=== PATIENT | female | born 1980 | race Caucasian/White ===

== ENCOUNTER → 2017-10-02 | Outpatient (CLI) | payer OTHER ==
--- NOTE | 2017-10-02 11:24 | RAD ---
Radionuclide gastric imaging study, 10/02/2017: History: Gastroparesis This study was performed utilizing a solid test meal radiolabeled with 2.0 mCi of technetium 99m sulfur colloid. Imaging of the abdomen obtained out to one hour showed little if any gastric emptying. The time activity curve is flat. An accurate T1/2 cannot be calculated in this situation. IMPRESSION: Markedly delayed gastric emptying
== END | disposition home or self-care (01) ==
LOC: NM 08:26
PROVIDERS: ATTEND Internal Medicine Gastroenterology
DX: K31.84 Gastroparesis (principal); I10 Essential (primary) hypertension; Z87.891 Personal history of nicotine dependence
CPT/HCPCS: 78264; A9541

== ENCOUNTER 2017-12-14 14:40 | Emergency (ER) | payer OTHER ==
[~2017-12-14] VITALS: Ht 162.6 cm; Wt 113.4 kg
[2017-12-14] MEDS ORDERED: IV NORMAL SALINE 1,000ML 1,000 ML IV SCH (15:17)
[2017-12-14] MEDS ORDERED: 0.9 % SODIUM CHLORIDE 10 ML DISP.SYRIN. IV PRN (15:30)
--- NOTE | 2017-12-14 15:35 | RAD ---
PQRS Compliance Statement: One or more of the following individualized dose reduction techniques were utilized for this examination: 1. Automated exposure control 2. Adjustment of the mA and/or kV according to patient size 3. Use of iterative reconstruction technique CT HEAD WITHOUT CONTRAST History: SYNCOPE TODAY Comparison: None. Procedure: Axial images are obtained of the head from the skull base through the vertex without IV contrast. Findings: The ventricles and sulci are normal for the patient's age. No mass-effect, midline shift, hemorrhage, extra-axial fluid collection, or obvious acute infarction is identified. Basilar cisterns are patent. Bone windows demonstrate no acute calvarial abnormality. The visualized paranasal sinuses are clear. Mastoid air cells are well aerated. IMPRESSION: No acute intracranial abnormality. Electronically signed by: Evangelista Gates MD (12/14/2017 3:32 PM) [id number]
[2017-12-14] MEDS ORDERED: ONDANSETRON PF 4 MG/2 ML VIAL. IV ONE (15:45)
--- NOTE | 2017-12-14 15:46 | EKG ---
[address] [address] Test Date: 2017-12-14 Test Time: 15:31:18 Pat Name: NESHA CALLE Department: Room: Gender: F [employer] Feeder: MARIAMA : 1980 Requested By: ESTELLE HENRY Order Number: [id number] Reading MD: Rolando Mcclelland MD Measurements Intervals [place] Rate: 76 P: 0 MD: 178 QRS: 54 QRSD: 88 T: 36 QT: 382 QTc: 434 Interpretive Statements SINUS RHYTHM Electronically Signed On 12-17-2017 16:19:41 CDT by Rolando Mcclelland MD
[2017-12-14 16:09] LABS: BASO % 1 % (0-3); EOS # 0.4 x10^3/uL (0.0-0.7); EOS % 5 % (0-3); HEMATOCRIT 40.7 % (36.0-47.0); HEMOGLOBIN 13.9 g/dL (12.0-15.5); LYMPH # 2.2 x10^3/uL (1.0-4.8); LYMPH % 32 % (24-48); MEAN CORPUSCULAR HEMOGLOBIN 30 pg (25-35); MEAN CORPUSCULAR HGB CONC 34 g/dL (31-37); MEAN CORPUSCULAR VOLUME 89 fL (79-100); MONO # 0.7 x10^3/uL (0.0-1.1); MONO % 9 % (0-9); NEUT # 3.7 x10^3uL (1.8-7.7); NEUT % 53 % (31-73); PLATELET COUNT 277 x10^3/uL (140-400); RED BLOOD COUNT 4.58 x10^6/uL (3.50-5.40); RED CELL DISTRIBUTION WIDTH 12.4 % (11.5-14.5)
[2017-12-14 16:11] LABS: ALBUMIN 3.6 g/dL (3.4-5.0); ALBUMIN/GLOBULIN RATIO 1.1 (1.0-1.7); CALCIUM 9.1 mg/dL (8.5-10.1); CREATININE 0.8 mg/dL (0.6-1.0); GFR 81.6; TOTAL BILIRUBIN 0.3 mg/dL (0.2-1.0); TOTAL PROTEIN 6.9 g/dL (6.4-8.2)
--- NOTE | 2017-12-14 17:02 | PHYS DOC ---
Past History Past Medical History: Diabetes, Other Additional Past Medical Histor: diabetic gastroparesis Adult General Chief Complaint Chief Complaint: SYNCOPE HPI HPI 37-year-old male patient with history of diabetes mellitus and gastroparesis complaining of frequent episodes of nausea and vomiting for the last 2 months and losing 45 pounds because of not eating well. Patient states she was at work today and felt lightheadedness and dizziness without chest pain or shortness of breath or focal neuro deficit and had a syncopal episode that was weakness by her coworker. Patient did not have a fall or seizure activity. Syncopal episodes last for a short time. Patient states her blood sugar was 80 at that is lower than her usual of 120s. Patient denies history of syncopal episode Review of Systems Review of Systems Constitutional: Denies fever or chills [] Eyes: Denies change in visual acuity, redness, or eye pain [] HENT: Denies nasal congestion or sore throat [] Respiratory: Denies cough or shortness of breath [] Cardiovascular: No additional information not addressed in HPI [] GI: Denies abdominal pain, nausea, vomiting, bloody stools or diarrhea [] : Denies dysuria or hematuria [] Musculoskeletal: Denies back pain or joint pain [] Integument: Denies rash or skin lesions [] Neurologic: Denies headache, focal weakness or sensory changes [] Endocrine: Denies polyuria or polydipsia [] All other systems were reviewed and found to be within normal limits, except as documented in this note. Current Medications Current Medications Current Medications Medications (Trade) Dose Ordered Sig/Dylon Start Time Stop Time Status Last Admin Dose Admin Ondansetron HCl (Zofran) 4 mg 1X ONCE 12/14/17 15:45 12/14/17 15:46 DC 12/14/17 15:45 4 MG Sodium Chloride (Normal Saline Flush) 10 ml QSHIFT PRN 12/14/17 15:30 Allergies Allergies Allergies Coded Allergies Type Severity Reaction Last Updated Verified clindamycin Allergy Intermediate rash 12/14/17 Yes Physical Exam Physical Exam Constitutional: Well developed, well nourished, mild distress, non-toxic appearance. [] HENT: Normocephalic, atraumatic, bilateral external ears normal, oropharynx moist, no oral exudates, nose normal. [] Eyes: PERRLA, EOMI, conjunctiva normal, no discharge. [] Neck: Normal range of motion, no tenderness, supple, no stridor. [] Cardiovascular:Heart rate regular rhythm, no murmur [] Lungs & Thorax: Bilateral breath sounds clear to auscultation [] Abdomen: Bowel sounds normal, soft, no tenderness, no masses, no pulsatile masses. [] Skin: Warm, dry, no erythema, no rash. [] Back: No tenderness, no CVA tenderness. [] Extremities: No tenderness, no cyanosis, no clubbing, ROM intact, no edema. [] Neurologic: Alert and oriented X 3, normal motor function, normal sensory function, no focal deficits noted. [] Psychologic: Affect normal, judgement normal, mood normal. [] Current Patient Data Lab Results Laboratory Tests Test 12/14/17 14:56 12/14/17 15:20 12/14/17 16:29 Glucose (Fingerstick) 84 mg/dL (70-99) 76 mg/dL (70-99) White Blood Count 7.0 x10^3/uL (4.0-11.0) Red Blood Count 4.58 x10^6/uL (3.50-5.40) Hemoglobin 13.9 g/dL (12.0-15.5) Hematocrit 40.7 % (36.0-47.0) Mean Corpuscular Volume 89 fL (79-100) Mean Corpuscular Hemoglobin 30 pg (25-35) Mean Corpuscular Hemoglobin Concent 34 g/dL (31-37) Red Cell Distribution Width 12.4 % (11.5-14.5) Platelet Count 277 x10^3/uL (140-400) Neutrophils (%) (Auto) 53 % (31-73) Lymphocytes (%) (Auto) 32 % (24-48) Monocytes (%) (Auto) 9 % (0-9) Eosinophils (%) (Auto) 5 % (0-3) H Basophils (%) (Auto) 1 % (0-3) Neutrophils # (Auto) 3.7 x10^3uL (1.8-7.7) Lymphocytes # (Auto) 2.2 x10^3/uL (1.0-4.8) Monocytes # (Auto) 0.7 x10^3/uL (0.0-1.1) Eosinophils # (Auto) 0.4 x10^3/uL (0.0-0.7) Basophils # (Auto) 0.0 x10^3/uL (0.0-0.2) Sodium Level 140 mmol/L (136-145) Potassium Level 4.0 mmol/L (3.5-5.1) Chloride Level 103 mmol/L (98-107) Carbon Dioxide Level 28 mmol/L (21-32) Anion Gap 9 (6-14) Blood Urea Nitrogen 9 mg/dL (7-20) Creatinine 0.8 mg/dL (0.6-1.0) Estimated GFR (Cockcroft-Gault) 81.6 BUN/Creatinine Ratio 11 (6-20) Glucose Level 85 mg/dL (70-99) Calcium Level 9.1 mg/dL (8.5-10.1) Total Bilirubin 0.3 mg/dL (0.2-1.0) Aspartate Amino Transferase (AST) 19 U/L (15-37) Alanine Aminotransferase (ALT) 31 U/L (14-59) Alkaline Phosphatase 93 U/L (46-116) Creatine Kinase 103 U/L (26-192) Troponin I Quantitative < 0.017 ng/mL (0-0.055) Total Protein 6.9 g/dL (6.4-8.2) Albumin 3.6 g/dL (3.4-5.0) Albumin/Globulin Ratio 1.1 (1.0-1.7) Lipase 206 U/L (73-393) EKG EKG EKG interpreted by me. EKG at 1531 showed sinus rhythm at rate of 76, no acute ST and T-wave abnormalities[] Radiology/Procedures Radiology/Procedures [] [address] [address] IMAGING REPORT Signed PATIENT: NESHA CALLE ACCOUNT: [id number] : 1980 LOCATION: ER AGE: 37 SEX: F EXAM STATUS: REG ER ORD. PHYSICIAN: ESTELLE HENRY MD REASON: syncope PROCEDURE: CT HEAD WO CONTRAST PQRS Compliance Statement: One or more of the following individualized dose reduction techniques were utilized for this examination: 1. Automated exposure control 2. Adjustment of the mA and/or kV according to patient size 3. Use of iterative reconstruction technique CT HEAD WITHOUT CONTRAST History: SYNCOPE TODAY Comparison: None. Procedure: Axial images are obtained of the head from the skull base through the vertex without IV contrast. Findings: The ventricles and sulci are normal for the patient's age. No mass-effect, midline shift, hemorrhage, extra-axial fluid collection, or obvious acute infarction is identified. Basilar cisterns are patent. Bone windows demonstrate no acute calvarial abnormality. The visualized paranasal sinuses are clear. Mastoid air cells are well aerated. IMPRESSION: No acute intracranial abnormality. Electronically signed by: Evangelista Gates MD (12/14/2017 3:32 PM) [id number] DICTATED AND SIGNED BY: EVANGELISTA GATES MD DATE: 12/14/17 1529 CC: EVAN POPE; ESTELLE HENRY MD ~ Course & Med Decision Making Course & Med Decision Making Pertinent Labs and Imaging studies reviewed. (See chart for details) Impression of patient in ER showed 37-year-old male patient with syncope. Patient had blood sugar of 80s but states her blood sugar usually is more than 100 and treated with details with improvement of her condition. I offered patient admission at Hospital because of first-time syncopal episode but she wanted to go home and follow with her primary care physician. Patient tolerated oral intake and ambulated without problem. [] Dragon Disclaimer Dragon Disclaimer This electronic medical record was generated, in whole or in part, using a voice recognition dictation system. Departure Departure: Impression: Primary Impression: Syncope Additional Impressions: Uncontrolled diabetes mellitus Gastroparesis Disposition: 01 HOME, SELF-CARE (At 1801) Condition: IMPROVED Referrals: EVAN POPE (PCP) Patient Instructions: 2400 Calorie Diet for Diabetes Meal Planning, Diabetes Meal Planning Guide, Gastroparesis, Syncope Additional Instructions: Drink plenty of liquids Follow-up with your primary care physician in 3-5 days Return to ER if not getting better Scripts Metoclopramide Hcl (REGLAN) 10 Mg Tablet 1 TAB PO TID, #30 TAB Prov: ESTELLE HENRY MD 12/14/17 Problem Qualifiers ESTELLE HENRY MD Dec 14, 2017 17:02
[2017-12-14] MEDS ORDERED: IV DEXTROSE 10% 1,000 ML IV ONE (17:15)
[2017-12-14 17:20] VITALS: BP 121/76
[2017-12-14 17:53] LABS: BACTERIA,URINE FEW /HPF (0-FEW); BILIRUBIN,URINE NEG (NEG); CLARITY,URINE CLEAR; COLOR,URINE YELLOW; GLUCOSE,URINE NEG (NEG); NITRITE,URINE NEG (NEG); SQUAMOUS EPITHELIAL CELL,UR MOD /LPF; UROBILINOGEN,URINE 0.2 mg/dL (0.2 mg/dL); WBC,URINE OCC /HPF (0-4)
[2017-12-14] MEDS ORDERED: METO10TA81 PO (18:03)
== END 2017-12-14 18:10 | disposition home or self-care (01) ==
LOC: ER 14:40
DX: R55 Syncope and collapse (principal); E11.43 Type 2 diabetes mellitus with diabetic autonomic (poly)neuropathy; K31.84 Gastroparesis; Z88.1 Allergy status to other antibiotic agents
CPT/HCPCS: 36415; 70450; 80053; 81001; 82550; 82947; 83690; 84484; 85025; 93005; 96361; 96374; 99285; J2405; J7030

== ENCOUNTER → 2018-01-14 | Outpatient (CLI) | payer OTHER ==
[~2018-01-14] VITALS: Ht 162.6 cm; Wt 92.5 kg
[~2018-01-14] MED LIST: METO10TA81 PO; NORMAL SALINE IV ONE; SINCALIDE IV ONE
--- NOTE | 2018-01-14 12:08 | RAD ---
Radionuclide hepatobiliary scan with gallbladder ejection fraction, 01/14/2018: HISTORY: Nausea Following IV injection of 5.5 mCi of technetium 99m Choletec there was prompt uptake of the radionuclide from the blood stream by the liver. Activity is present in the bile ducts and gallbladder at 10 minutes. Small bowel activity developed at 20 minutes. Additional imaging of the gallbladder was performed following IV injection of 1.9 mcg of cholecystokinin. The gallbladder ejection fraction was calculated at 82 percent. A small amount of bile reflux into the stomach was noted during the latter phases of the exam. IMPRESSION: 1. No evidence of cystic duct or common bile duct obstruction. 2. The gallbladder ejection fraction is 82 percent. 3. Mild bile reflux into the stomach. Electronically signed by: Jeremias Betancourt MD (01/14/2018 12:05 PM) [facility]
== END | disposition home or self-care (01) ==
LOC: NM 07:30
PROVIDERS: ATTEND Nurse Practitioner Primary Care
DX: K31.84 Gastroparesis (principal); I10 Essential (primary) hypertension; E11.9 Type 2 diabetes mellitus without complications; Z87.891 Personal history of nicotine dependence
CPT/HCPCS: 78226; 96374; 96375; A9537; J2805

== ENCOUNTER 2018-10-09 18:58 | Emergency (ER) | payer OTHER ==
[~2018-10-09] VITALS: Ht 160 cm; Wt 76.2 kg
[~2018-10-09 18:58] MED LIST changes: -NORMAL SALINE IV ONE; -SINCALIDE IV ONE
[2018-10-09] MEDS ORDERED: IOHEXOL 300 MG/ML 75 ML VIAL. IV ONE (19:30)
--- NOTE | 2018-10-09 19:41 | PHYS DOC ---
Past History Past Medical History: Diabetes, Hypothyroid Additional Past Medical Histor: diabetic gastroparesis Past Surgical History: Appendectomy, , Gastric Bypass, Hysterectomy Alcohol Use: Occasionally Drug Use: None Adult General Chief Complaint Chief Complaint: ABDOMINAL PAIN [facility] HPI 38-year-old female presents with right flank pain. The patient has had right- sided flank pain for about 3 days. The pain is a moderate, intermittent cramping sensation. It radiates across her anterior abdomen to the left side. She thought it might be constipation so she took a laxative and did an enema yesterday. She had decent output that the pain has not resolved. She does not have a history of kidney stones. She has had urinary tract infections on occasion, but does not think it feels like that. She denies fever or chills. She is mildly nauseous, but has not had vomiting. Review of Systems Review of Systems Constitutional: Denies fever or chills [] Eyes: Denies change in visual acuity, redness, or eye pain [] HENT: Denies nasal congestion or sore throat [] Respiratory: Denies cough or shortness of breath [] Cardiovascular: No additional information not addressed in HPI [] GI: Right flank pain, lower abdominal pain, nausea.[] : Denies dysuria or hematuria [] Musculoskeletal: Denies back pain or joint pain [] Integument: Denies rash or skin lesions [] Neurologic: Denies headache, focal weakness or sensory changes [] Endocrine: Denies polyuria or polydipsia [] All other systems were reviewed and found to be within normal limits, except as documented in this note. Current Medications Current Medications Current Medications Medications (Trade) Dose Ordered Sig/Dylon Start Time Stop Time Status Last Admin Dose Admin Iohexol (Omnipaque 300 Mg/ml) 75 ml 1X ONCE 10/09/18 19:30 10/09/18 19:31 DC Allergies Allergies Allergies Coded Allergies Type Severity Reaction Last Updated Verified clindamycin Allergy Intermediate rash 12/14/17 Yes Physical Exam Physical Exam Constitutional: Well developed, well nourished, no acute distress, non-toxic appearance. [] HENT: Normocephalic, atraumatic, bilateral external ears normal, oropharynx moist, no oral exudates, nose normal. [] Eyes: PERRLA, EOMI, conjunctiva normal, no discharge. [] Neck: Normal range of motion, no tenderness, supple, no stridor. [] Cardiovascular:Heart rate regular rhythm, no murmur [] Lungs & Thorax: Bilateral breath sounds clear to auscultation [] Abdomen: Moderate suprapubic tenderness. Bowel sounds normal, soft, no masses, no pulsatile masses. [] Skin: Warm, dry, no erythema, no rash. [] Back: No tenderness, no CVA tenderness. [] Extremities: No tenderness, no cyanosis, no clubbing, ROM intact, no edema. [] Neurologic: Alert and oriented X 3, normal motor function, normal sensory function, no focal deficits noted. [] Psychologic: Affect normal, judgement normal, mood normal. [] Current Patient Data Vital Signs Vital Signs Date Time Temp Pulse Resp B/P (MAP) Pulse Ox O2 Delivery O2 Flow Rate FiO2 10/09/18 19:13 97.3 82 18 100 Room Air EKG EKG [] Radiology/Procedures Radiology/Procedures [] Impressions: CT abdomen pelvis with contrast. HISTORY: Left-sided abdominal pain and flank pain, nausea and vomiting history of hysterectomy and appendectomy CT scan the abdomen pelvis was done using 75 mL Omnipaque 300 contrast. Lung bases are clear. There is no effusion. Liver is normal in appearance. There is no calcified gallstone. Spleen and adrenal glands are normal. There is a small hiatus hernia with the sutures from the gastric surgery above the diaphragm. Patient's had a gastric bypass. There is no bowel obstruction. There is a small cyst in the left kidney. There is no renal mass or hydronephrosis. Pancreas is normal. There is no adenopathy. Patient's had a hysterectomy. There is a mass in the pelvis which is cystic and solid. The mass measures 8 x 6 cm. Ovarian cyst with hemorrhagic cyst would be possible, an ovarian tumor is possible. torsion could have this pattern. There is fluid or hemorrhage surrounding the lesion in the pelvis. Bowel pattern is normal without bowel obstruction. IMPRESSION: 1. Pelvic mass possible considerations would include an ovarian tumor or hemorrhagic ovarian cysts, pelvic abscess would be possible. 2. Small hiatus hernia. PQRS Compliance Statement: One or more of the following individualized dose reduction techniques were utilized for this examination: 1. Automated exposure control 2. Adjustment of the mA and/or kV according to patient size 3. Use of iterative reconstruction technique Electronically signed by: Susi Mcnulty MD (10/09/2018 9:43 PM) [facility] DICTATED AND SIGNED BY: SUSI MCNULTY MD DATE: 10/09/182135 CC: REBECA BERMEO DO; PCP,UNKNOWN ~ Course & Med Decision Making Course & Med Decision Making Pertinent Labs and Imaging studies reviewed. (See chart for details) The patient's labs are unremarkable. Her urinalysis is negative for infection but is positive for Trichomonas. I will treat her with Flagyl 2 g in the ED. I will additionally give her prescription for Flagyl 2 g to treat her sexual partner. She states there is only one partner. The patient's CT scan did show an 8 cm x 6 cm pelvic mass likely ovarian. See official read for more details. The patient has stable vitals, she has no fever, her pain has been controlled with Toradol. I discussed the case with Dr. Jurado, S[employer]IOR [employer]ING DATA ANALYST and she did not believe emergent ultrasound was necessary since the patient was not showing signs of torsion or abscess. The patient would also like to go home and follow up outpatient. I believe she is stable to be discharged at this time and follow up tomorrow. I will provide referral for her to Dr. Jurado's office. [] Dragon Disclaimer Dragon Disclaimer This electronic medical record was generated, in whole or in part, using a voice recognition dictation system. Departure Departure: Impression: Primary Impression: Trichomonas infection Additional Impression: Pelvic mass in female Disposition: HOME, SELF-CARE Condition: STABLE Referrals: PCP,UNKNOWN (PCP) Patient Instructions: Trichomoniasis-Brief Additional Instructions: You can call the SENIOR MARKETING DATA ANALYST Department at [facility] tomorrow morning at the following phone number: [phone]. You can tell them that you were in the ED and Dr. Jurado would like you to make an appointment for follow-up of your pelvic mass. Scripts Metronidazole (FLAGYL) 500 Mg Tablet 2000 MG PO 1X for infection, #4 TAB Prov: REBECA BERMEO DO 10/09/18 Problem Qualifiers REBECA BERMEO DO Oct 09, 2018 19:41
[2018-10-09] MEDS ORDERED: KETOROLAC 30 MG/ML VIAL. ONE (19:42)
[2018-10-09 19:43] LABS: BASO % 0 % (0-3); EOS # 0.2 x10^3/uL (0.0-0.7); EOS % 1 % (0-3); HEMATOCRIT 42.6 % (36.0-47.0); HEMOGLOBIN 14.3 g/dL (12.0-15.5); LYMPH # 1.8 x10^3/uL (1.0-4.8); LYMPH % 16 % (24-48); MEAN CORPUSCULAR HEMOGLOBIN 31 pg (25-35); MEAN CORPUSCULAR HGB CONC 34 g/dL (31-37); MEAN CORPUSCULAR VOLUME 92 fL (79-100); MONO # 0.7 x10^3/uL (0.0-1.1); MONO % 6 % (0-9); NEUT # 8.8 x10^3uL (1.8-7.7); NEUT % 77 % (31-73); PLATELET COUNT 260 x10^3/uL (140-400); RED BLOOD COUNT 4.64 x10^6/uL (3.50-5.40); RED CELL DISTRIBUTION WIDTH 12.7 % (11.5-14.5); WHITE BLOOD COUNT 11.5 x10^3/uL (4.0-11.0)
[2018-10-09] MEDS ORDERED: IV NORMAL SALINE 1,000ML 1,000 ML IV ONE (19:45)
[2018-10-09] MEDS ORDERED: ONDANSETRON PF 4 MG/2 ML VIAL. IV ONE (19:45)
[2018-10-09 19:57] LABS: ALBUMIN 3.5 g/dL (3.4-5.0); ALBUMIN/GLOBULIN RATIO 1.1 (1.0-1.7); CALCIUM 8.6 mg/dL (8.5-10.1); CREATININE 0.8 mg/dL (0.6-1.0); GFR 81.2; POTASSIUM 3.6 mmol/L (3.5-5.1); TOTAL BILIRUBIN 0.3 mg/dL (0.2-1.0); TOTAL PROTEIN 6.8 g/dL (6.4-8.2)
[2018-10-09] MEDS ORDERED: KETOROLAC 30 MG/ML VIAL. IV ONE (20:00)
[2018-10-09 20:07] LABS: BILIRUBIN,URINE NEG (NEG); CLARITY,URINE CLEAR; COLOR,URINE YELLOW; GLUCOSE,URINE NEG (NEG); NITRITE,URINE NEG (NEG); UROBILINOGEN,URINE 0.2 mg/dL (0.2 mg/dL)
[2018-10-09 20:08] LABS: BACTERIA,URINE FEW /HPF (0-FEW); SQUAMOUS EPITHELIAL CELL,UR MOD /LPF; TRICHOMONAS,URINE PRESENT
[2018-10-09] MEDS ORDERED: metroNIDAZOLE 500 MG TABLET ONE (21:15)
[2018-10-09] MEDS ORDERED: METR500T PO (21:20)
[2018-10-09 21:23] VITALS: BP 117/78
[2018-10-09] MEDS ORDERED: metroNIDAZOLE 500 MG TABLET PO ONE (21:30)
--- NOTE | 2018-10-09 21:48 | RAD ---
CT abdomen pelvis with contrast. HISTORY: Left-sided abdominal pain and flank pain, nausea and vomiting history of hysterectomy and appendectomy CT scan the abdomen pelvis was done using 75 mL Omnipaque 300 contrast. Lung bases are clear. There is no effusion. Liver is normal in appearance. There is no calcified gallstone. Spleen and adrenal glands are normal. There is a small hiatus hernia with the sutures from the gastric surgery above the diaphragm. Patient's had a gastric bypass. There is no bowel obstruction. There is a small cyst in the left kidney. There is no renal mass or hydronephrosis. Pancreas is normal. There is no adenopathy. Patient's had a hysterectomy. There is a mass in the pelvis which is cystic and solid. The mass measures 8 x 6 cm. Ovarian cyst with hemorrhagic cyst would be possible, an ovarian tumor is possible. torsion could have this pattern. There is fluid or hemorrhage surrounding the lesion in the pelvis. Bowel pattern is normal without bowel obstruction. IMPRESSION: 1. Pelvic mass possible considerations would include an ovarian tumor or hemorrhagic ovarian cysts, pelvic abscess would be possible. 2. Small hiatus hernia. PQRS Compliance Statement: One or more of the following individualized dose reduction techniques were utilized for this examination: 1. Automated exposure control 2. Adjustment of the mA and/or kV according to patient size 3. Use of iterative reconstruction technique Electronically signed by: Miah Lou MD (10/09/2018 9:43 PM) [facility]
== END 2018-10-09 22:12 | disposition home or self-care (01) ==
LOC: ER 18:58
DX: A59.9 Trichomoniasis, unspecified (principal); R19.00 Intra-abdominal and pelvic swelling, mass and lump, unspecified site; K44.9 Diaphragmatic hernia without obstruction or gangrene; R11.2 Nausea with vomiting, unspecified; E11.9 Type 2 diabetes mellitus without complications; E03.9 Hypothyroidism, unspecified; Z90.89 Acquired absence of other organs; Z98.890 Other specified postprocedural states; Z90.710 Acquired absence of both cervix and uterus; Z98.84 Bariatric surgery status; Z88.1 Allergy status to other antibiotic agents
CPT/HCPCS: 36415; 74177; 80053; 81001; 85025; 96361; 96374; 96375; 99284; J1885; J2405; Q9967; J7030

== ENCOUNTER → 2018-10-14 | Outpatient (CLI) | payer OTHER ==
[2018-10-09 21:23] VITALS: BP 117/78
[~2018-10-14] MED LIST changes: +METR500T PO
--- NOTE | 2018-10-15 09:08 | RAD ---
Transabdominal and transvaginal sonography of the pelvis Clinical indications: Adnexal mass on CT. Left lower quadrant abdominal pain. History of hysterectomy. COMPARISON: CT study dated 10/09/2018. Transabdominal sonography: The uterus is surgically absent. The vaginal cuff is unremarkable. There is a complex cystic appearing mass lesion of the midline just superior to the vaginal cuff which measures 7.1 cm in greatest dimension. Transvaginal sonography will be performed. The left ovary appears separate from this mass and appears normal measuring 2.6 cm x 2.5 cm x 2.3 cm in size. Therefore, this complex cystic mass may represent the right ovary. No free fluid is evident. Transvaginal sonography: This complex cystic mass corresponds to the right ovary. The right ovary measures 5.4 cm x 5.3 cm x 5.4 cm in size. There are 2 complex cystic masses within the right ovary. The larger one contains multiple internal echoes and septations and measures 4.6 cm in greatest dimension. The smaller one measures 2.6 cm in greatest dimension and also contains similar internal echoes and septations. No internal color Doppler flow is seen within these lesions. Findings are consistent with hemorrhagic cysts. Color Doppler flow is seen within the right ovarian parenchyma. The left ovary measures 3.2 cm and 2.5 cm and 2.6 cm in size and contains follicular cysts. The largest follicular cyst measures 14 mm. Color Doppler flow is seen within the left ovarian parenchyma. No free fluid is evident. IMPRESSION: 2 complex hemorrhagic cysts of the right ovary are seen. Electronically signed by: Lucas Perez MD (10/15/2018 9:05 AM) [id number]
== END | disposition home or self-care (01) ==
LOC: US 15:56
PROVIDERS: ATTEND Obstetrics & Gynecology
DX: N83.201 Unspecified ovarian cyst, right side (principal); Z90.710 Acquired absence of both cervix and uterus
CPT/HCPCS: 76830; 76856

== ENCOUNTER → 2018-12-20 | Outpatient (CLI) | payer OTHER ==
--- NOTE | 2018-12-20 10:32 | RAD ---
Two-view study left hand Clinical indications: Left hand pain after getting bit by a child on December 18, 2018. FINDINGS: No acute fracture or dislocation or lytic process or radiopaque foreign body is evident. No soft tissue air is seen. IMPRESSION: No acute osseous abnormality is evident. Electronically signed by: Lucas Perez MD (12/20/2018 10:30 AM) [id number]
== END | disposition home or self-care (01) ==
LOC: PMG 10:05
PROVIDERS: ATTEND Registered Nurse
DX: M79.642 Pain in left hand (principal)
CPT/HCPCS: 73120